=== PATIENT | male | born 1970 | race Hispanic/Latino ===

== ENCOUNTER 2016-12-02 18:19 | Emergency (ER) | payer SELFPAY ==
[2016-12-02 18:24] VITALS: BP 129/64; PULSE 75; RESP 16; TEMP 98.1; O2SAT 97
--- NOTE | 2016-12-02 19:32 | ED PDOC ---
HPI: General Adult Time Seen by Provider: 12/02/16 18:28 Chief Complaint (Nursing): Abnormal Skin Integrity Chief Complaint (Provider): Left hand laceration History Per: Patient History/Exam Limitations: no limitations Onset/Duration Of Symptoms: Mins (Prior to arrival) Current Symptoms Are (Timing): Still Present Location: Left hand Additional Complaint(s): Brodie Mancilla is a 46 year old male, with no past medical history, who presents to the emergency department complaining of a left hand laceration prior to arrival. Patient describes the pain as a burning sensation and believes he has nerve damage. He reports he was cleaning the pool when a glass bowl broke in his hand. He denies any further medical complaints. PMD: None provided. Past Medical History Reviewed: Historical Data, Nursing Documentation, Vital Signs Vital Signs: Last Vital Signs Temp 98.1 F 12/02/16 18:22 Pulse 75 12/02/16 18:22 Resp 16 12/02/16 18:22 BP 129/64 12/02/16 18:22 Pulse Ox 97 12/02/16 19:44 - Medical History PMH: No Chronic Diseases - Family History Family History: States: Unknown Family Hx - Allergies Allergies/Adverse Reactions: Allergies Allergy/AdvReac Type Severity Reaction Status Date / Time No Known Allergies Allergy Verified 12/02/16 18:21 Review of Systems ROS Statement: Except As Marked, All Systems Reviewed And Found Negative Musculoskeletal: Positive for: Hand Pain (laceration on left hand) Physical Exam - Reviewed Nursing Documentation Reviewed: Yes Vital Signs Reviewed: Yes - Physical Exam Appears: Positive for: Well, Non-toxic, No Acute Distress Head Exam: Positive for: ATRAUMATIC, NORMAL INSPECTION, NORMOCEPHALIC Skin: Positive for: Normal Color, Warm, Dry Eye Exam: Positive for: Normal appearance Respiratory: Positive for: Normal Breath Sounds. Negative for: Respiratory Distress Extremity: Positive for: Normal ROM (Full ROM on digits), Other (Neuro-vascular intact. Laceration 1cm width & 2cm length, partial thickness.) Neurologic/Psych: Positive for: Alert, Oriented - ECG O2 Sat by Pulse Oximetry: 97 (RA) Pulse Ox Interpretation: Normal Medical Decision Making Medical Decision Making: Initial Impression: Left hand laceration Initial Plan: --Hand left 3 views routine [RAD] -Laceration 1cm in width, 2 cm in length. Partial thickness, no suture required. Wound irritated, sterile strips applied. Patient was advised for treatment and told to not wait any longer than 24 hrs. He states he has appointment with specialist tomorrow. Scribe Attestation: Documented by Aquiles Chong, acting as a scribe for Melissa CLAIRE. Provider Scribe Attestation: All medical record entries made by the Scribe were at my direction and personally dictated by me. I have reviewed the chart and agree that the record accurately reflects my personal performance of the history, physical exam, medical decision making, and the department course for this patient. I have also personally directed, reviewed, and agree with the discharge instructions and disposition. Disposition - Clinical Impression Clinical Impression: Laceration - Patient ED Disposition Is Patient to be Admitted: No Counseled Patient/Family Regarding: Need For Followup - Disposition Disposition: Routine/Home Disposition Time: 19:55 Condition: STABLE Additional Instructions: you did forgo laceration repair in ED. however it is imperative you have it repaired by the hand surgeon tomorrow please do not wait more than 24hours. Instructions: Laceration (DC) Forms: [facility] ([place])
--- NOTE | 2016-12-03 12:50 | RAD ---
PROCEDURE: Left Hand Radiographs. HISTORY: hand injury COMPARISON: None. FINDINGS: BONES: No definitive radiographic evidence of acute displaced fracture nor dislocation. The osseous structures intact. JOINTS: Joint spaces preserved. No significant osteoarthritis SOFT TISSUES: Normal. OTHER FINDINGS: None. IMPRESSION: No evidence of acute displaced fracture nor dislocation. If symptoms persist or occult fracture suspected clinically, consider followup radiographs in 5-10 days as most fractures should become radiographically evident in this timeframe.
== END 2016-12-02 19:28 | disposition home or self-care (01) ==
LOC: H.ER 18:19
DX: S61.412A Laceration without foreign body of left hand, initial encounter (principal); W25.XXXA Contact with sharp glass, initial encounter; Y92.89 Other specified places as the place of occurrence of the external cause